=== PATIENT | male | born 1960 | race Caucasian/White ===

== ENCOUNTER 2016-07-30 08:38 | Outpatient (CLI) | payer OTHER ==
[2016-07-30] MEDS ORDERED: NS 1,000 ML IV SCH (08:45)
[2016-07-30] MEDS ORDERED: NA BICARBONATE 50 MEQ/50 ML VIAL ONE (09:31)
[2016-07-30] MEDS ORDERED: BUPIVACAINE 0.25% 30 ML SDV ONE (09:31)
[2016-07-30] MEDS ORDERED: LIDOCAINE 1% 30 ML SDV ONE (09:31)
[2016-07-30] MEDS ORDERED: NALOXONE HCL 0.4 MG/ML INJ ONE (09:34)
[2016-07-30] MEDS ORDERED: FLUMAZENIL 0.5 MG/5 ML MDV IVP ONE (09:34)
[2016-07-30] MEDS ORDERED: MIDAZOLAM 2 MG/2 ML VIAL ONE (09:35)
[2016-07-30] MEDS ORDERED: fentaNYL 100 MCG/2 ML INJ ONE (09:35)
== END 2016-07-30 14:30 | disposition home health service (06) ==
LOC: FIMAGING 08:38
PROVIDERS: ATTEND Internal Medicine Hematology & Oncology
PROC: 0FB13ZX Excision of Right Lobe Liver, Percutaneous Approach, Diagnostic (ICD-10-PCS; principal; 2016-07-30 11:20)
DX: C78.7 Secondary malignant neoplasm of liver and intrahepatic bile duct (principal); Z85.038 Personal history of other malignant neoplasm of large intestine
CPT/HCPCS: J2250; J2310; J3010

== ENCOUNTER 2017-01-21 08:42 | Outpatient (CLI) | payer OTHER ==
[2017-01-21] MEDS ORDERED: NS 1,000 ML IV SCH (09:00)
[2017-01-21] MEDS ORDERED: LIDOCAINE 1% 300 MG/30 ML SDV ONE (09:03)
[2017-01-21] MEDS ORDERED: FLUMAZENIL 0.5 MG/5 ML MDV IVP ONE (09:41)
[2017-01-21] MEDS ORDERED: MIDAZOLAM 2 MG/2 ML VIAL ONE (09:41)
[2017-01-21] MEDS ORDERED: NALOXONE HCL 0.4 MG/ML INJ ONE (09:41)
[2017-01-21] MEDS ORDERED: fentaNYL 100 MCG/2 ML INJ ONE (09:42)
[2017-01-21 14:26] VITALS: BP 119/61; RESP 17; O2SAT 96
[2017-01-21] MEDS ORDERED: oxyCODONE IR 5 MG TAB PO PRN (15:05)
[2017-01-21] MEDS ORDERED: ONDANSETRON 4 MG/2 ML VIAL IVP PRN (15:06)
== END 2017-01-21 14:09 | disposition home or self-care (01) ==
LOC: FIMAGING 08:42
PROVIDERS: ATTEND Internal Medicine Hematology & Oncology
PROC: 0FB03ZX Excision of Liver, Percutaneous Approach, Diagnostic (ICD-10-PCS; principal; 2017-01-21 11:30)
DX: C78.7 Secondary malignant neoplasm of liver and intrahepatic bile duct (principal); C18.9 Malignant neoplasm of colon, unspecified
CPT/HCPCS: J2250; J2310; J3010

== ENCOUNTER 2017-04-05 11:11 | Emergency (ER) | payer OTHER ==
[2017-04-05 11:55] LABS: PLATELET COUNT 131 10^3/uL (150-400)
--- NOTE | 2017-04-05 12:02 | EDPHY ---
H & P Stated Complaint: HX COLORECTAL CANCER WITH CONSTIPATION/ABD DISTENTION Time Seen by Provider: 04/05/17 11:35 HPI/ROS: CHIEF COMPLAINT: Constipation, abdominal pain HISTORY OF PRESENT ILLNESS: 56-year-old male history of colorectal cancer with metastases, multiple abdominal surgeries, complaining of constipation, inability to pass flatus, since yesterday well as abdominal distension which has become progressively worse with intermittent abdominal cramping. Symptoms not relieved with oral MiraLax. No fever no chills. No nausea no vomiting. No back pain. No fever or chills. No flu-like symptoms. PRIMARY CARE PROVIDER: Dr. Garcia [facility] REVIEW OF SYSTEMS: A ten point review of systems was performed and is negative with the exception of the items mentioned in the HPI PAST MEDICAL & SURGICAL HISTORY: History of colorectal cancer with metastasis SOCIAL HISTORY:nonsmoker PHYSICAL EXAM (Prior to examination, patient consented to physical exam, hands were washed and my usual and customary physical exam procedures followed) 1) GENERAL: Well-developed, well-nourished, alert and oriented. Appears to be in no acute distress. 2) HEAD: Normocephalic, atraumatic 3) HEENT: Pupils equal, round, reactive to light bilaterally. Sclera anicteric. 4) NECK: Full range of motion, no meningeal signs. 5) LUNGS: Clear auscultation bilaterally, no wheezes, no rhonchi, no retractions. 6) HEART: Regular rate and rhythm, no murmur, no heave, no gallop. 7) ABDOMEN: distended. Multiple surgical scars. No guarding, no rebound, no focal tenderness, negative McBurney's, negative Melchor's, negative Rovsing's, negative peritoneal sign, 8) MUSCULOSKELETAL: Moving all extremities, no focal areas of tenderness, no obvious trauma. No peripheral edema or discoloration. 9) BACK: No CVA tenderness, no midline vertebral tenderness, no fluctuance, no step-off, no obvious trauma, no visual or palpable abnormality. 10) SKIN: No rash, no petechiae. 11) RECTAL: Normal rectal tone, no stool in the rectal vault . DIFFERENTIAL DIAGNOSIS: in no particular include but limited to constipation, bowel obstruction, malignancy - Personal History Current Tetanus/Diphtheria Vaccine: Unsure - Medical/Surgical History Hx Asthma: No Hx Chronic Respiratory Disease: No Hx Diabetes: No Hx Cardiac Disease: No Hx Renal Disease: No Hx Cirrhosis: No Hx Alcoholism: No Hx HIV/AIDS: No Hx Splenectomy or Spleen Trauma: No Other PMH: COLORECTAL CANCER WITH METS - Social History Smoking Status: Never smoked Constitutional: Initial Vital Signs Temperature (C) 36.7 C 04/05/17 11:17 Heart Rate 100 04/05/17 11:17 Respiratory Rate 20 04/05/17 11:17 Blood Pressure 124/84 H 04/05/17 11:17 O2 Sat (%) 97 04/05/17 11:17 O2 Delivery Mode Room Air Allergies/Adverse Reactions: No Known Allergies Allergy (Verified 04/05/17 11:15) Home Medications: Medication Instructions Recorded Ritalin 10mg (*) 10 mg PO DAILY 01/17/17 Zantac PO DAILY 01/17/17 Bbi 503 04/05/17 Keytruda 04/05/17 Peg 3350/Na Sulf,Bicarb,Cl/KCl 1,000 ml PO ONCE #4000 ml 04/05/17 [Golytely (RX)] Sennosides/Docusate Sodium 04/05/17 Medical Decision Making - Diagnostics Imaging Results: Imaging Impressions Abdomen CT 04/05/17 12:18 Impression: 1. Worsening hepatic metastases. 2. New ascites. 3. 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 4. Worsening esophageal varices. 5. Constipation. 6. Cholelithiasis. Images reviewed myself ED Course/Re-evaluation: Noon : Old medical records reviewed. Discussed case with secondary supervising physician Dr. Mcduffie in the ER. 2:50 p.m. Patient was re-evaluated with serial examinations. I discussed his imaging results showing ascites, constipation. Rectal examination reveals no stool in the rectal vault. Plan will be discharge home with Shelton Blackburn's enema. He initially had outpatient ultrasound ordered for evaluation of ascites , this was visualized on CT imaging. I do not think that paracentesis currently indicated emergently. Recommend he follow up with his oncologist. He feels comfortable with this plan. All questions and concerns addressed by myself. - Data Points Laboratory Results: Laboratory Results 04/05/17 11:37 04/05/17 11:37 04/05/17 04/05/17 04/05/17 11:53 11:37 11:37 WBC RBC Hgb POC Hgb 14.3 gm/dL gm/dL (13.7-17.5) Hct POC Hct 42 % % (40-51) MCV MCH MCHC RDW Plt Count MPV Neut % (Auto) Lymph % (Auto) [place] % (Auto) Eos % (Auto) Baso % (Auto) Nucleat RBC Rel Count Absolute Neuts (auto) Absolute Lymphs (auto) Absolute Monos (auto) Absolute Eos (auto) Absolute Basos (auto) Absolute Nucleated RBC Immature Gran % Immature Gran # PT 14.1 SEC SEC (12.0-15.0) INR 1.10 (0.83-1.16) APTT 29.5 SEC SEC (23.0-38.0) POC Sodium 139 mEq/L mEq/L (134-144) Sodium 140 mEq/L mEq/L (134-144) POC Potassium 3.7 mEq/L mEq/L (3.3-5.0) Potassium 3.9 mEq/L mEq/L (3.5-5.2) POC Chloride 102 mEq/L mEq/L (97-110) Chloride 101 mEq/L mEq/L (97-110) Carbon Dioxide 23 mEq/l mEq/l (22-31) Anion Gap 16 mEq/L mEq/L (8-16) POC BUN 12 mg/dL mg/dL (7-23) BUN 12 mg/dL mg/dL (7-23) Creatinine 0.9 mg/dL mg/dL (0.7-1.3) POC Creatinine 0.9 mg/dL mg/dL (0.7-1.3) Estimated GFR > 60 Glucose 109 mg/dL H mg/dL (70-100) POC Glucose 108 mg/dL H mg/dL (70-100) Calcium 9.2 mg/dL mg/dL (8.5-10.4) Total Bilirubin 1.1 mg/dL mg/dL (0.1-1.4) Conjugated Bilirubin 0.5 mg/dL mg/dL (0.0-0.5) Unconjugated Bilirubin 0.6 mg/dL mg/dL (0.0-1.1) AST 67 IU/L H IU/L (17-59) ALT 52 IU/L IU/L (21-72) Alkaline Phosphatase 315 IU/L H IU/L (38-126) Total Protein 7.4 g/dL g/dL (6.3-8.2) Albumin 3.9 g/dL g/dL (3.5-5.0) Lipase 86 IU/L IU/L (23-300) 04/05/17 11:37 WBC 7.07 10^3/uL 10^3/uL (3.80-9.50) RBC 4.07 10^6/uL L 10^6/uL (4.40-6.38) Hgb 13.4 g/dL L g/dL (13.7-17.5) POC Hgb Hct 38.8 % L % (40.0-51.0) POC Hct MCV 95.3 fL fL (81.5-99.8) MCH 32.9 pg pg (27.9-34.1) MCHC 34.5 g/dL g/dL (32.4-36.7) RDW 12.2 % % (11.5-15.2) Plt Count 131 10^3/uL L 10^3/uL (150-400) MPV 10.7 fL fL (8.7-11.7) Neut % (Auto) 84.9 % H % (39.3-74.2) Lymph % (Auto) 8.3 % L % (15.0-45.0) [place] % (Auto) 5.9 % % (4.5-13.0) Eos % (Auto) 0.4 % L % (0.6-7.6) Baso % (Auto) 0.1 % L % (0.3-1.7) Nucleat RBC Rel Count 0.0 % % (0.0-0.2) Absolute Neuts (auto) 5.99 10^3/uL 10^3/uL (1.70-6.50) Absolute Lymphs (auto) 0.59 10^3/uL L 10^3/uL (1.00-3.00) Absolute Monos (auto) 0.42 10^3/uL 10^3/uL (0.30-0.80) Absolute Eos (auto) 0.03 10^3/uL 10^3/uL (0.03-0.40) Absolute Basos (auto) 0.01 10^3/uL L 10^3/uL (0.02-0.10) Absolute Nucleated RBC 0.00 10^3/uL 10^3/uL (0-0.01) Immature Gran % 0.4 % % (0.0-1.1) Immature Gran # 0.03 10^3/uL 10^3/uL (0.00-0.10) PT INR APTT POC Sodium Sodium POC Potassium Potassium POC Chloride Chloride Carbon Dioxide Anion Gap POC BUN BUN Creatinine POC Creatinine Estimated GFR Glucose POC Glucose Calcium Total Bilirubin Conjugated Bilirubin Unconjugated Bilirubin AST ALT Alkaline Phosphatase Total Protein Albumin Lipase Point of Care Test Results: 04/05/17 11:53 POC Sodium 139 POC Potassium 3.7 POC Chloride 102 POC BUN 12 POC Creatinine 0.9 POC Glucose 108 H Departure - Departure Disposition: Home, Routine, Self-Care Clinical Impression: Constipation Qualifiers: Constipation type: unspecified constipation type Qualified Code(s): K59.00 - Constipation, unspecified Condition: Good Instructions: Constipation (ED) Additional Instructions: Return to emergency department immediately if you develop abdominal pain, if you developed fever or chills or any other symptoms that concern you. Referrals: Xiao Sherman MD [Primary Care Provider] - As per Instructions Prescriptions: Peg 3350/Na Sulf,Bicarb,Cl/KCl [Golytely (RX)] 1,000 ml PO ONCE #4000 ml
[2017-04-05 12:06] LABS: INR 1.1 (0.83-1.16); PROTIME(PATIENT) 14.1 SEC (12.0-15.0)
[2017-04-05] MEDS ORDERED: IOPAMIDOL (ISOVUE-300) 100 ML BTL ONE (12:59)
[2017-04-05 14:04] VITALS: RESP 18; O2SAT 96
[2017-04-05 15:25] VITALS: BP 126/85; PULSE 85; TEMP 98.4
== END 2017-04-05 15:23 | disposition home or self-care (01) ==
DX: K59.00 Constipation, unspecified (principal); Z85.038 Personal history of other malignant neoplasm of large intestine
CPT/HCPCS: 82947-QW; Q9967

== ENCOUNTER → 2017-05-24 | Outpatient (CLI) | payer OTHER ==
[~2017-05-24] MED LIST: LIDOCAINE 1% 300 MG/30 ML SDV ONE
== END ==
LOC: FIMAGING 13:43
PROVIDERS: ATTEND Internal Medicine Hematology & Oncology
PROC: 0W9G3ZX Drainage of Peritoneal Cavity, Percutaneous Approach, Diagnostic (ICD-10-PCS; principal; 2017-05-24)
DX: C20 Malignant neoplasm of rectum (principal); R18.8 Other ascites

== ENCOUNTER 2017-07-05 07:46 | Inpatient (IN) | payer OTHER ==
[2017-07-05] MEDS ORDERED: OCTREOTIDE ACETATE 50 MCG/ML INJ IVP ONE (08:09)
--- NOTE | 2017-07-05 08:14 | EDPHY ---
H & P Stated Complaint: vomitting blood starting 0600 this morning Time Seen by Provider: 07/05/17 07:57 HPI/ROS: Chief Complaint: Vomiting blood HPI: 57-year-old male with a history of metastatic colorectal cancer with known extensive hepatic mets and esophageal varices. Patient woke this morning about 6 o'clock. At 6:15 a.m. he had 1 episode of emesis of zafar blood with clots. Thinks he may have vomited up maybe 12 oz of blood. Has not had any prior vomiting of blood. No dark black tarry stools or blood per rectum. No coffee grounds emesis. Patient is coming of abdominal pain but has significant ascites secondary to his liver metastasis. No fevers or chills. No cough. No chest pain or shortness of breath. Patient is under the care of Dr. Garcia at [facility]. Patient does state that he stopped taking his proton pump inhibitor about 2 weeks ago. He does not recall up this was at the suggestion of his doctor or not. ROS: 10 point Review of Systems is negative except as noted in the HPI. PMH: Colorectal cancer with liver metastasis, stenotic inferior vena cava, ascites and esophageal varices. Social History: No smoking, no alcohol, no recreational drug use Family History: non-contributory Physical Exam: Patient noted to be tachycardic and hypotensive Gen: Awake, Alert, No Distress, jaundiced and pale HEENT: Nose: no rhinorrhea Eyes: PERRLA, EOMI, scleral icterus Mouth: Moist mucosa Neck: Supple, no JVD Chest: nontender, lungs clear to auscultation Heart: S1, S2 normal, no murmur Abd: Soft, distended and ascitic, no guarding Back: no CVA tenderness, no midline tenderness Ext: no edema, non-tender Skin: no rash Neuro: CN II-XII intact, Sensation grossly intact, Strength 5/5 in bilateral upper and lower extremities - Personal History Current Tetanus/Diphtheria Vaccine: Yes Current Tetanus Diphtheria and Acellular Pertussis (TDAP): Yes Tetanus Vaccine Date: < 10 years - Medical/Surgical History Hx Asthma: No Hx Chronic Respiratory Disease: No Hx Diabetes: No Hx Cardiac Disease: No Hx Renal Disease: No Hx Cirrhosis: No Hx Alcoholism: No Hx HIV/AIDS: No Hx Splenectomy or Spleen Trauma: No Other PMH: COLORECTAL CANCER WITH METS - Social History Smoking Status: Never smoked Constitutional: Initial Vital Signs Temperature (C) 36.4 C 07/05/17 07:52 Heart Rate 119 H 07/05/17 07:52 Respiratory Rate 2 L 07/05/17 07:52 Blood Pressure 92/63 L 07/05/17 07:52 O2 Sat (%) 97 07/05/17 07:52 O2 Delivery Mode Room Air Allergies/Adverse Reactions: No Known Allergies Allergy (Verified 07/05/17 07:50) Home Medications: Medication Instructions Recorded Escitalopram Oxalate [Lexapro] 5 mg PO DAILY 07/05/17 Furosemide [Lasix 40 MG (*)] 40 mg PO DAILY 07/05/17 Omeprazole [Prilosec 20 mg] 20 mg PO DAILY 07/05/17 Prochlorperazine Maleate 10 mg PO Q6HRS PRN 07/05/17 [Compazine 10mg (*)] Regorafenib [Stivarga] 80 mg PO DAILY 07/05/17 Spironolactone [Aldactone 25 MG 50 mg PO DAILY 07/05/17 (*)] oxyCODONE HCL [Oxycontin] 10 mg PO DAILY 07/05/17 oxyCODONE HCL [Oxycontin] 20 mg PO HS 07/05/17 oxyCODONE IR [Oxycodone Ir (*)] 10 - 20 mg PO Q3-4PRN PRN 07/05/17 Medical Decision Making ED Course/Re-evaluation: 57-year-old male with known esophageal varices with hematemesis. Patient's H&H have dropped from 14.3 and 42 in April to 7.7 and 23.2 here. INR is 1.28. Platelets are 132. He has already received octreotide IV. 2 U packed red blood cells have been ordered. I have paged Gastroenterology. I spoke with Dr. Hightower, gastroenterology. He will plan on scoping the patient today. Patient be admitted to the ICU. I have started octreotide drip. I have paged the hospitalist for admission. Critical Care Time: I spent a total of 40 minutes of critical care time in obtaining history, performing a physical exam, bedside monitoring of interventions, collecting and interpreting tests and discussion with consultants but not including time spent performing procedures. - Data Points Laboratory Results: Laboratory Results 07/05/17 08:23 07/05/17 08:23 07/05/1718 07/05/17 08:23 08:23 08:23 WBC 8.62 10^3/uL 10^3/uL (3.80-9.50) RBC 2.42 10^6/uL L 10^6/uL (4.40-6.38) Hgb 7.7 g/dL L g/dL (13.7-17.5) Hct 23.2 % L % (40.0-51.0) MCV 95.9 fL fL (81.5-99.8) MCH 31.8 pg pg (27.9-34.1) MCHC 33.2 g/dL g/dL (32.4-36.7) RDW 14.7 % % (11.5-15.2) Plt Count 136 10^3/uL L 10^3/uL (150-400) MPV 10.2 fL fL (8.7-11.7) Neut % (Auto) 83.6 % H % (39.3-74.2) Lymph % (Auto) 6.0 % L % (15.0-45.0) [place] % (Auto) 9.4 % % (4.5-13.0) Eos % (Auto) 0.3 % L % (0.6-7.6) Baso % (Auto) 0.2 % L % (0.3-1.7) Nucleat RBC Rel Count 0.0 % % (0.0-0.2) Absolute Neuts (auto) 7.20 10^3/uL H 10^3/uL (1.70-6.50) Absolute Lymphs (auto) 0.52 10^3/uL L 10^3/uL (1.00-3.00) Absolute Monos (auto) 0.81 10^3/uL H 10^3/uL (0.30-0.80) Absolute Eos (auto) 0.03 10^3/uL 10^3/uL (0.03-0.40) Absolute Basos (auto) 0.02 10^3/uL 10^3/uL (0.02-0.10) Absolute Nucleated RBC 0.00 10^3/uL 10^3/uL (0-0.01) Immature Gran % 0.5 % % (0.0-1.1) Immature Gran # 0.04 10^3/uL 10^3/uL (0.00-0.10) PT 16.2 SEC H SEC (12.0-15.0) INR 1.28 H (0.83-1.16) APTT 30.3 SEC SEC (23.0-38.0) Sodium 135 mEq/L mEq/L (135-145) Potassium 4.8 mEq/L mEq/L (3.5-5.2) Chloride 99 mEq/L mEq/L (97-110) Carbon Dioxide 24 mEq/l mEq/l (22-31) Anion Gap 12 mEq/L mEq/L (8-16) BUN 35 mg/dL H mg/dL (7-23) Creatinine 0.8 mg/dL mg/dL (0.7-1.3) Estimated GFR > 60 Glucose 119 mg/dL H mg/dL (70-100) Calcium 8.1 mg/dL L mg/dL (8.5-10.4) Total Bilirubin 1.3 mg/dL mg/dL (0.1-1.4) AST 87 IU/L H IU/L (17-59) ALT 49 IU/L IU/L (21-72) Alkaline Phosphatase 282 IU/L H IU/L (38-126) Total Protein 5.1 g/dL L g/dL (6.3-8.2) Albumin 2.3 g/dL L g/dL (3.5-5.0) Patient ABO/Rh Antibody Screen Crossmatch IS Only 07/05/17 08:08 WBC RBC Hgb Hct MCV MCH MCHC RDW Plt Count MPV Neut % (Auto) Lymph % (Auto) [place] % (Auto) Eos % (Auto) Baso % (Auto) Nucleat RBC Rel Count Absolute Neuts (auto) Absolute Lymphs (auto) Absolute Monos (auto) Absolute Eos (auto) Absolute Basos (auto) Absolute Nucleated RBC Immature Gran % Immature Gran # PT INR APTT Sodium Potassium Chloride Carbon Dioxide Anion Gap BUN Creatinine Estimated GFR Glucose Calcium Total Bilirubin AST ALT Alkaline Phosphatase Total Protein Albumin Patient ABO/Rh O POSITIVE Antibody Screen NEGATIVE Crossmatch IS Only See Detail Medications Given: Octreotide Acetate 500 mcg/ (Dextrose) 51 mls @ 5 mls/hr IV CONT SILVER Stop: 07/05/17 19:41 Last Admin: 07/05/17 09:53 Dose: 51 mls Discontinued Medications Fentanyl (Sublimaze) 50 mcg IVP ONCE ONE Stop: 07/05/17 10:05 Last Admin: 07/05/17 10:08 Dose: 50 mcg Levofloxacin/Dextrose (Levaquin 500 Mg (Premix)) 100 mls @ 100 mls/hr IV ONCE ONE PRN Reason: Protocol Stop: 07/05/17 11:07 Last Admin: 07/05/17 12:22 Dose: 100 mls Morphine Sulfate (Morphine) 4 mg IVP EDNOW ONE Stop: 07/05/17 11:34 Last Admin: 07/05/17 11:36 Dose: 4 mg Octreotide Acetate (Octreotide Acetate) 50 mcg IVP ONCE ONE Stop: 07/05/17 08:10 Last Admin: 07/05/17 08:54 Dose: 50 mcg Ondansetron HCl (Zofran) 4 mg IVP ONCE ONE Stop: 07/05/17 10:04 Last Admin: 07/05/17 10:14 Dose: 4 mg Departure - Departure Disposition: [facility] Inpatient Acute Clinical Impression: Esophageal varices with bleeding Condition: Serious
[2017-07-05 08:37] LABS: PLATELET COUNT 136 10^3/uL (150-400)
[2017-07-05 08:45] LABS: INR 1.28 (0.83-1.16); PROTIME(PATIENT) 16.2 SEC (12.0-15.0)
[2017-07-05] MEDS ORDERED: OCTREOTIDE ACETATE 500 MCG in NS 50 ML IV SCH (09:15)
[2017-07-05] MEDS ORDERED: OCTREOTIDE ACETATE 500 MCG in D5W 50 ML IV SCH (09:30)
[2017-07-05] MEDS ORDERED: fentaNYL 100 MCG/2 ML INJ ONE (10:03)
[2017-07-05] MEDS ORDERED: ONDANSETRON 4 MG/2 ML VIAL IVP ONE (10:03)
[2017-07-05] MEDS ORDERED: fentaNYL 100 MCG/2 ML INJ IVP ONE (10:04)
[2017-07-05] MEDS ORDERED: ONDANSETRON 4 MG/2 ML VIAL ONE ×2 (10:05→13:09)
[2017-07-05] MEDS ORDERED: PHYTONADIONE 10 MG/ML AMP SC ONE (10:08)
[2017-07-05] MEDS ORDERED: levOFLOXACIN 500 MG/DEXTROSE 100 ML IV ONE (10:08)
[2017-07-05] MEDS ORDERED: PANTOPRAZOLE SODIUM 80 MG in NS 100 ML IV SCH (10:15)
--- NOTE | 2017-07-05 10:18 | ASMTLACE ---
LACE Length of stay for Answers: Less than 1 day current admission Acuity / Level of Answers: Yes Care: Did the patient have an inpatient admission? Comorbidities - select Answers: Any tumor (including all that apply lymphoma or leukemia) Score: 5 Date Signed: 07/05/2017 10:17 AM Electronically Signed By:Marti Martinez LCSW
--- NOTE | 2017-07-05 10:55 | GCON ---
[f rep st] CONSULTATION GI INPATIENT CONSULTATION DATE OF CONSULTATION: 07/05/2017 I was kindly requested to see the patient by Dr. Almas Benoit in consultation for chief complaint of hematemesis. HISTORY OF PRESENT ILLNESS: He is a 57-year-old white male who had an episode of hematemesis this morning, bright red with some clots. He had a further episode in the emergency department, darker in color. He denies melena. He denies aspirin, nonsteroidal use. He has known metastatic colon cancer, with extensive hepatic metastases and esophageal varices. A April 2017 CT scan showed worsening liver metastases, as well as worsening esophageal varices. His rectal cancer was first found in 2012. He underwent a left hepatectomy. He did have a small bowel obstruction after this. He then underwent portal vein embolization, which resulted in liver decompensation and ascites. He presently is on a study medication for his cancer. PAST MEDICAL HISTORY: 1. As above. 2. Otherwise, noncontributory. ALLERGIES: No known drug allergies. MEDICATIONS: Outpatient medications include: OxyContin, Stivarga, Compazine as needed, omeprazole 20 mg daily, Lexapro, Aldactone 50 mg daily, and Lasix 40 mg daily. Inpatient medications include: Transfusion of blood and octreotide drip at 50 mcg/h. SOCIAL HISTORY: He is . Mobile number [phone]. FAMILY HISTORY: Negative for similar bleeding. REVIEW OF SYSTEMS: Positive pertinent review of systems as per my HPI. Otherwise, complete review of systems is negative. PHYSICAL EXAM: CONSTITUTIONAL: A cachectic, chronically ill-appearing gentleman. VITAL SIGNS: Stable. SKIN: Warm, dry. EYES: Pupils equal, round , reactive to light and accommodation. EAR, NOSE, MOUTH, AND THROAT: Oropharynx without masses, moist mucosa. CARDIOVASCULAR: Normal S2, normal PMI. RESPIRATORY: Lungs clear to auscultation and percussion anteriorly. GASTROINTESTINAL: Moderate ascites. No masses felt. NEUROLOGIC: Grossly nonfocal, cranial nerves grossly intact. PSYCHIATRIC: Orientation, insight appropriate. MUSCULOSKELETAL: Strength grossly normal throughout, normal station. LABORATORIES: Include hematocrit 23.2%. Platelet count 136,000. Prothrombin time 16.2. Alkaline phosphatase 282. AST 87. Normal basic metabolic panel. His April 2017 CT otherwise showed severe stenosis of the hepatic portion of the IVC. Gallstones. ASSESSMENT: Hematemesis, with drop in his hematocrit. Overall, suspect an esophageal varicele bleed. Other possibilities, such as peptic ulcer disease, tumor invasion into the stomach, etc. is possible, but less likely. PLAN: 1. Agree with transfusion of blood, octreotide drip. 2. Serial hematocrits, transfusion of more prbc prn. 3. Protonix drip. 4. Vitamin K x1. 5. Urgent upper endoscopy, with general anesthesia (he is on OxyContin, oxycodone, etc.) Certainly, with his narcotic use, metastatic colon cancer, known varices, stenotic hepatic IVC, ascites, etc., he is at increased risk for this procedure. However, suspected benefits outweigh the risks, and suspect he will do well. 6. With his ascites, will give him a prophylactic dose of Levaquin, because of his bleeding, need for upper endoscopy and probable varicele banding. 7. Would avoid or keep maintenance fluid to a minimum, to avoid worsening ascites. Once stable, would recommend restarting his Aldactone and Lasix. Thank you for allowing me to help in the management of this patient. Copy requested to: Dr. Richardson Rivera /[id number]/MODL MTDD
[2017-07-05] MEDS ORDERED: PANTOPRAZOLE SODIUM 40 MG VIAL IVP SCH (12:00)
--- NOTE | 2017-07-05 12:13 | PDANEPAE ---
ANE History of Present Illness hematemesis, esophageal varices ANE Past Medical History - Cardiovascular History Hx Hypertension: No Hx Arrhythmias: No Hx Chest Pain: No Hx Coronary Artery / Peripheral Vascular Disease: No Hx CHF / Valvular Disease: No Hx Palpitations: No - Pulmonary History Hx COPD: No Hx Asthma/Reactive Airway Disease: No Hx Recent Upper Respiratory Infection: No Hx Oxygen in Use at Home: No Hx Sleep Apnea: No - Neurologic History Hx Cerebrovascular Accident: No Hx Seizures: No Hx Dementia: No - Endocrine History Hx Diabetes: No Hypothyroid: No Hyperthyroid: No - Renal History Hx Renal Disorders: No - Liver History Hx Hepatic Disorders: Yes Hepatic History Comment: colon cancer with liver mets. esophageal varices - Neurological & Psychiatric Hx Hx Neurological and Psychiatric Disorders: Yes Neurological / Psychiatric History Comment: past situational depression. - Cancer History Hx Cancer: Yes Cancer History Comment: colon cancer with liver mets - Congenital Disorder History Hx Congenital Disorders: No - GI History Hx Gastrointestinal Disorders: Yes Gastrointestinal History Comment: esophageal varices, ascites, pt. was due for a paracentesis this week - Other Health History Other Health History: none - Chronic Pain History Chronic Pain: Yes (on opioids) - Surgical History Prior Surgeries: liver resection/shunt 01/2014 ANE Review of Systems Review of Systems: - Exercise capacity METS (RN): 2 METS ANE Patient History - Allergies Allergies/Adverse Reactions: No Known Allergies Allergy (Verified 07/05/17 07:50) - Home Medications Home Medications: Escitalopram Oxalate [Lexapro] 5 mg PO DAILY 07/05/17 [Last Taken 07/04/17] Furosemide [Lasix 40 MG (*)] 40 mg PO DAILY 07/05/17 [Last Taken 07/04/17] Omeprazole [Prilosec 20 mg] 20 mg PO DAILY 07/05/17 [Last Taken Unknown] Prochlorperazine Maleate [Compazine 10mg (*)] 10 mg PO Q6HRS PRN 07/05/17 [Last Taken 07/04/17 14:00] Regorafenib [Stivarga] 80 mg PO DAILY 07/05/17 [Last Taken 07/04/17] Spironolactone [Aldactone 25 MG (*)] 50 mg PO DAILY 07/05/17 [Last Taken ] oxyCODONE HCL [Oxycontin] 10 mg PO DAILY 07/05/17 [Last Taken 07/04/17] oxyCODONE HCL [Oxycontin] 20 mg PO HS 07/05/17 [Last Taken 07/04/17] oxyCODONE IR [Oxycodone Ir (*)] 10 - 20 mg PO Q3-4PRN PRN 07/05/17 [Last Taken 07/05/17 03:00 10mg] - Smoking Hx Smoking Status: Never smoked - Family Anes Hx Family Hx Anesthesia Complications: None ANE Labs/Vital Signs - Labs Result Diagrams: 07/05/17 08:23 07/05/17 08:23 - Vital Signs Blood Pressure: 103/67 Heart Rate: 96 Respiratory Rate: 16 O2 Sat (%): 96 Height: 177.8 cm Weight: 77.111 kg ANE Physical Exam - Airway Neck exam: decreased ROM (decreased R lateral CS rotation) Mallampati Score: Class 1 Mouth exam: poor dentition (upper front cap) - Pulmonary Pulmonary: clear to auscultation - Cardiovascular Cardiovascular: regular rate and rhythym - ASA Status ASA Status: III ANE Anesthesia Plan Anesthesia Plan: general endotracheal anesthesia
[2017-07-05] MEDS ORDERED: REMIFENTANIL HCL 1 MG VIAL ONE (12:28)
[2017-07-05] MEDS ORDERED: PROPOFOL/EMULSION 500 MG/50 ML BOTTLE IV ONE (12:28)
[2017-07-05] MEDS ORDERED: DEXAMETHASONE 4 MG/ML VIAL ONE (12:29)
[2017-07-05] MEDS ORDERED: SUCCINYLCHOLINE CHLORIDE 200 MG/10 ML SYR IVP ONE (12:29)
[2017-07-05] MEDS ORDERED: ROCURONIUM 50 MG/5 ML VIAL ONE (12:29)
[2017-07-05] MEDS ORDERED: PHYTONADIONE 10 MG in NS (SYRINGE) 50 ML IV ONE (12:30)
[2017-07-05] MEDS ORDERED: PHYTONADIONE IV ONE (12:30)
[2017-07-05] MEDS ORDERED: NS IV ONE (12:30)
[2017-07-05] MEDS ORDERED: PHENYLEPHRINE 10 MG/ML SDV ONE (12:33)
[2017-07-05] MEDS ORDERED: NALOXONE HCL 0.4 MG/ML INJ IVP PRN (13:23)
--- NOTE | 2017-07-05 13:27 | GIREPORT ---
[facility] Surgical Services - Endoscopy Department Patient Name: Jerardo Harrison Procedure Date: 07/05/2017 12:38 PM Patient Type: Inpatient Attending MD/ ER Physician: Brandyn Hightower MD Procedure: Upper GI endoscopy Indications: Note dictated, consult appreciated. Hematemesis. Providers: Brandyn Hightower MD Referring MD: Jacky Rivera MD; Patrice Sanabria MD; Gabe Sherman MD; [facility] Hospitalist service Medicines: Monitored Anesthesia Care Complications: No immediate complications. Description of Procedure: After obtaining informed consent, the endoscope was passed under direct vision. Throughout the procedure, the patient's blood pressure, pulse, and oxygen saturations were monitored continuously. The Endoscope was intro duced through the mouth, and advanced to the second part of duodenum. Findings: Grade III varices were found in the lower third of the esophagus, three columns in total, one large in size, with a red "yoly" sign just above the GE junction. GE junction at 43 cm. No active bleeding at present. Five bands were successfully placed, three at 42 cm on each varix, and two on the larger varix at 40 and 38 cm. The stomach was normal, except for mild portal hypertensive gastropathy . The examined duodenum was normal. Estimated Blood Loss: Estimated blood loss: none. Post Op Diagnosis: - Esophageal varices, as above; suspect this was the cause of his hematemesis. No active bleeding now. Recommendation: - clears - buffcap IV, when not in use - change PPI to oral daily - serial H/H, trf prbc prn - restart O/P lasix, aldactone - continue octreotide drip for now Thank you for allowing me to help in the management of this patient. Katja Ahumada MD Brandyn Hightower MD 07/05/2017 1:27:22 PM This report has been signed electronicallyPeter MD Katja Number of Addenda: 0 Note Initiated On: 07/05/2017 12:38 PM [email or web address]
[2017-07-05] MEDS ORDERED: HYDROmorphONE/DILAUDID 1 MG/ML INJ ONE (13:41)
[2017-07-05] MEDS: HYDROmorphONE/DILAUDID 1 MG/ML INJ IVP PRN ×2 (13:42→13:54)
--- NOTE | 2017-07-05 14:08 | POSTANESTH ---
Post Anesthetic Evaluation Cardiovascular Status: Similar to Pre-Op Cond Respiratory Status: Similar to Pre-op Cond. Level of Consciousness/Mental Status: Can Participate in Eval Pain Control: Adequate, Prn Tx Ordered Nausea/Vomiting Control: Adequate, Prn Tx Ordered Complications Possibly Related to Anesthesia: None Noted
[2017-07-05] MEDS: FUROSEMIDE 40 MG TAB PO SCH (14:21)
[2017-07-05] MEDS: SPIRONOLACTONE 50 MG TAB PO SCH (14:21)
[2017-07-05] MEDS: PANTOPRAZOLE SODIUM 40 MG TAB PO SCH (14:21)
--- NOTE | 2017-07-05 14:24 | ASMTCMCOM ---
CM Note CM Note Notes: Patient admitted for hematemesis. He has a history of metastatic colon cancer with mets to the liver. He also has known esophogeal varices, which were likely the cause of his hematemesis. He had an upper GI endoscopy today. Patient lives indepedently with his . I don't anticipate any discharge needs, but if any arise, Case Management can assit. Date Signed: 07/05/2017 02:23 PM Electronically Signed By:Lyudmila Caban RN
[2017-07-05] MEDS ORDERED: PROCHLORPERAZINE MALEATE 10 MG TAB PO PRN (14:45)
[2017-07-05] MEDS ORDERED: oxyCODONE IR 5 MG TAB PO PRN (14:45)
[2017-07-05] MEDS ORDERED: ONDANSETRON DISINTEGRATING 4 MG TAB PO PRN (14:47)
[2017-07-05] MEDS ORDERED: ACETAMINOPHEN 325 MG TAB PO PRN (14:47)
[2017-07-05] MEDS ORDERED: ONDANSETRON 4 MG/2 ML VIAL IVP PRN (14:47)
--- NOTE | 2017-07-05 16:20 | PDGENHP ---
History and Physical - Chief Complaint hematemasis - History of Present Illness 57-year-old male with a history of metastatic colorectal cancer with known extensive hepatic mets and esophageal varices. Patient woke this morning and had 1 episode of emesis of zafar blood with clots. No dark black tarry stools or blood per rectum. No coffee grounds emesis. No fevers or chills. No cough. No chest pain or shortness of breath. No abd pain. + abd distention Patient is under the care of Dr. Garcia at [facility]. In the E.D. he was started on octreotide, given vitamin K, and PRBC transfusion was given An endoscopy was performed which showed Grade 3 Esophageal Varices, no active bleeding, five bands successfully placed He is seen after the endoscopy PMH: Colorectal cancer with liver metastasis, stenotic inferior vena cava, ascites and esophageal varices. Social History: No smoking, no alcohol, no recreational drug use Family History: non-contributory History Information - Allergies/Home Medication List Allergies/Adverse Reactions: No Known Allergies Allergy (Verified 07/05/17 07:50) Home Medications: Escitalopram Oxalate [Lexapro] 5 mg PO DAILY 07/05/17 [Last Taken 07/04/17] Furosemide [Lasix 40 MG (*)] 40 mg PO DAILY 07/05/17 [Last Taken 07/04/17] Omeprazole [Prilosec 20 mg] 20 mg PO DAILY 07/05/17 [Last Taken Unknown] Prochlorperazine Maleate [Compazine 10mg (*)] 10 mg PO Q6HRS PRN 07/05/17 [Last Taken 07/04/17 14:00] Regorafenib [Stivarga] 80 mg PO DAILY 07/05/17 [Last Taken 07/04/17] Spironolactone [Aldactone 25 MG (*)] 50 mg PO DAILY 07/05/17 [Last Taken ] oxyCODONE HCL [Oxycontin] 10 mg PO DAILY 07/05/17 [Last Taken 07/04/17] oxyCODONE HCL [Oxycontin] 20 mg PO HS 07/05/17 [Last Taken 07/04/17] oxyCODONE IR [Oxycodone Ir (*)] 10 - 20 mg PO Q3-4PRN PRN 07/05/17 [Last Taken 07/05/17 03:00 10mg] I have personally reviewed and updated: medical history, social history - Social History Smoking Status: Never smoked Review of Systems Review of Systems: ROS: 10pt was reviewed & negative except for what was stated in HPI & below Physical Exam Physical Exam: Temp Pulse Resp BP Pulse Ox 36.7 C 82 21 H 114/78 96 07/05/17 13:32 07/05/17 13:32 07/05/17 14:01 07/05/17 14:01 07/05/17 14:01 Constitutional: no apparent distress Eyes: PERRL, EOMI Ears, Nose, Mouth, Throat: moist mucous membranes, hearing normal Cardiovascular: regular rate and rhythym, No edema Respiratory: no respiratory distress Gastrointestinal: normoactive bowel sounds, distension, No guarding, No rebound Genitourinary: no bladder fullness Skin: warm Neurologic: AAOx3 Psychiatric: interacting appropriately, not anxious, not encephalopathic Lab Data & Imaging Review 07/05/17 14:31 07/05/17 08:23 WBC 8.62 10^3/uL (3.80-9.50) 07/05/17 08:23 RBC 2.42 10^6/uL (4.40-6.38) L 07/05/17 08:23 Hgb 8.9 g/dL (13.7-17.5) L 07/05/17 14:31 Hct 26.3 % (40.0-51.0) L 07/05/17 14:31 MCV 95.9 fL (81.5-99.8) 07/05/17 08:23 MCH 31.8 pg (27.9-34.1) 07/05/17 08:23 MCHC 33.2 g/dL (32.4-36.7) 07/05/17 08:23 RDW 14.7 % (11.5-15.2) 07/05/17 08:23 Plt Count 136 10^3/uL (150-400) L 07/05/17 08:23 MPV 10.2 fL (8.7-11.7) 07/05/17 08:23 Neut % (Auto) 83.6 % (39.3-74.2) H 07/05/17 08:23 Lymph % (Auto) 6.0 % (15.0-45.0) L 07/05/17 08:23 [place] % (Auto) 9.4 % (4.5-13.0) 07/05/17 08:23 Eos % (Auto) 0.3 % (0.6-7.6) L 07/05/17 08:23 Baso % (Auto) 0.2 % (0.3-1.7) L 07/05/17 08:23 Nucleat RBC Rel Count 0.0 % (0.0-0.2) 07/05/17 08:23 Absolute Neuts (auto) 7.20 10^3/uL (1.70-6.50) H 07/05/17 08:23 Absolute Lymphs (auto) 0.52 10^3/uL (1.00-3.00) L 07/05/17 08:23 Absolute Monos (auto) 0.81 10^3/uL (0.30-0.80) H 07/05/17 08:23 Absolute Eos (auto) 0.03 10^3/uL (0.03-0.40) 07/05/17 08:23 Absolute Basos (auto) 0.02 10^3/uL (0.02-0.10) 07/05/17 08:23 Absolute Nucleated RBC 0.00 10^3/uL (0-0.01) 07/05/17 08:23 Immature Gran % 0.5 % (0.0-1.1) 07/05/17 08: Immature Gran # 0.04 10^3/uL (0.00-0.10) 07/05/17 08:23 PT 16.2 SEC (12.0-15.0) H 07/05/17 08:23 INR 1.28 (0.83-1.16) H 07/05/17 08:23 APTT 30.3 SEC (23.0-38.0) 07/05/17 08:23 Sodium 135 mEq/L (135-145) 07/05/17 08:23 Potassium 4.8 mEq/L (3.5-5.2) 07/05/17 08:23 Chloride 99 mEq/L (97-110) 07/05/17 08:23 Carbon Dioxide 24 mEq/l (22-31) 07/05/17 08:23 Anion Gap 12 mEq/L (8-16) 07/05/17 08:23 BUN 35 mg/dL (7-23) H 07/05/17 08:23 Creatinine 0.8 mg/dL (0.7-1.3) 07/05/17 08:23 Estimated GFR > 60 07/05/17 08:23 Glucose 119 mg/dL (70-100) H 07/05/17 08:23 Calcium 8.1 mg/dL (8.5-10.4) L 07/05/17 08:23 Total Bilirubin 1.3 mg/dL (0.1-1.4) 07/05/17 08:23 AST 87 IU/L (17-59) H 07/05/17 08:23 ALT 49 IU/L (21-72) 07/05/17 08:23 Alkaline Phosphatase 282 IU/L (38-126) H 07/05/17 08:23 Total Protein 5.1 g/dL (6.3-8.2) L 07/05/17 08:23 Albumin 2.3 g/dL (3.5-5.0) L 07/05/17 08:23 Patient ABO/Rh O POSITIVE 07/05/17 08:08 Antibody Screen NEGATIVE 07/05/17 08:08 Crossmatch IS Only See Detail 07/05/17 08:08 Assessment & Plan Assessment: #Esophageal varices with bleeding #Acute blood loss anemia #Hematemesis #Ascites #chronic pain syndrome Plan: -cont PPI oral -cont Octreotide -CLD -Monitor h/h, VS for recurrence -cont Lasix and Aldactone -SCD's for DVT proph -Full code, confirmed at bedside
[2017-07-06 04:21] LABS: PLATELET COUNT 160 10^3/uL (150-400)
[2017-07-06] MEDS ORDERED: REGORAFENIB PO SCH ×2 (09:00)
[2017-07-06] MEDS: CIPROFLOXACIN 250 MG TAB PO SCH ×2 (09:06→20:35)
[2017-07-06] MEDS: FUROSEMIDE 40 MG TAB PO SCH ×2 (09:06→16:20)
[2017-07-06] MEDS: SPIRONOLACTONE 50 MG TAB PO SCH (09:07)
[2017-07-06] MEDS: PANTOPRAZOLE SODIUM 40 MG TAB PO SCH (09:07)
--- NOTE | 2017-07-06 13:44 | HOSPPROG ---
Hospitalist Progress Note Assessment/Plan: #Esophageal varices with bleeding #Acute blood loss anemia #Hematemesis #Ascites, cirrhosis, portal HTN #chronic pain syndrome Plan: -Overall stable -cont PPI oral -cont Octreotide, restarted drip -advance diet -cont abx prophy -GI to see. Non selective BB per GI -Monitor h/h, VS for recurrence -cont Lasix and Aldactone -He will need a therapeutic Paracentesis on the day of discharge -SCD's for DVT proph -Full code, confirmed at bedside -OK to transfer out of the ICU D/W GI, appreciate their help Subjective: no further bleeding. No CP or SOB. No N/V. VSS Objective: Vital Signs Temp Pulse Resp BP Pulse Ox 36.7 C 85 20 118/72 99 07/06/17 07:34 07/06/17 07:34 07/06/17 07:34 07/06/17 07:34 07/06/17 07:34 Laboratory Results 07/06/17 12:15 07/06/17 04:05 07/05/17 07/06/17 07/07/17 05:59 05:59 05:59 Intake Total 2030 Output Total 1000 Balance 1030 PT 16.2 SEC (12.0-15.0) H 07/05/17 08:23 INR 1.28 (0.83-1.16) H 07/05/17 08:23 - Physical Exam Constitutional: no apparent distress Eyes: PERRL, EOMI Ears, Nose, Mouth, Throat: moist mucous membranes Cardiovascular: regular rate and rhythym Respiratory: no respiratory distress Gastrointestinal: distension Skin: warm Neurologic: AAOx3 Psychiatric: interacting appropriately, not anxious, not encephalopathic, thought process linear Lymph, Heme, Immunologic: No petechiae ICD10 Worksheet Patient Problems: Problems Problem Status Onset Esophageal varices with bleeding Acute
--- NOTE | 2017-07-06 14:23 | SOAPPROG ---
SOAP Progress Note Assessment/Plan: Assessment:Plan: 1) Esoph variceal bleed - Octreotide for approx 72 hours, start non-selective beta nathan = nadolol 10mg watch for change in BP - want decrease in HR about 25% so 86 to approx 60, repeat egd in 4-5 weeks for rebanding 2) ID - 3 days oral abx for UGI bleed in pt with portal HTN 3) Diet - start with liquids advance as tolerated to 2 gram sodium diet 4) Ascites - previous taps do not show malignant cells, needs low sodium diet and maybe increase in diuretics, daily weights, and if not helping then taps. He does want a therapeutic tap today secondary to discomfort/distension 5) Diuretics - increase to Aldactone 100mg and Lasix 80mg daily 6) dispo - can go to floor today will follow with you 07/06/17 14:31 Subjective: CC- variceal bleed, metastatic colon cancer pt wants to eat, no n/v melena decreasing no f/c/s no CP Objective: Vital Signs Temp Pulse Resp BP Pulse Ox 36.7 C 85 20 118/72 99 07/06/17 07:34 07/06/17 07:34 07/06/17 07:34 07/06/17 07:34 07/06/17 07:34 PT 16.2 SEC (12.0-15.0) H 07/05/17 08:23 INR 1.28 (0.83-1.16) H 07/05/17 08:23 A+Ox3 CTA S1S2 +BS, soft tender RUQ and diffusely from ascites distension no r/g Laboratory Tests 07/05/17 07/05/17 07/05/17 08:23 08:23 14:31 Hgb 7.7 L 8.9 L Hct 23.2 L 26.3 L BUN 35 H Creatinine 0.8 07/05/17 07/05/17 07/06/17 18:35 21:55 04:05 Hgb 9.8 L 9.4 L 9.8 L Hct 28.2 L 27.6 L 28.4 L BUN Creatinine 07/06/17 07/06/17 04:05 12:15 Hgb 9.4 L Hct 27.0 L BUN 36 H Creatinine 0.8 ICD10 Worksheet Patient Problems: Problems Problem Status Onset Esophageal varices with bleeding Acute
--- NOTE | 2017-07-06 14:23 | PDMN ---
Medical Necessity Medical necessity: C/M review: Patient meets INPT criteria under MCG M-180 Gastrointestinal bleed, upper: Acute upper GI bleed, Hgb 7.7, Hct 23.2 initially on 07/05/2017, acute blood loss anemia, hematemesis, moderate ascites on 07/06/2017 US, requiring urgent EGD which showed esophageal varices requiring placement of five bands, IV Octreotide infusion 07/05/2017 in SDU, 07/06/2017 planned transfer from SDU to med/surg, planned future therapeutic paracentesis on day of discharge, restart ongoing IV Octreotide infusion, Hgb/Hct serial monitoring, oral PPI, comorbid cirrhosis,portal hypertension, chronic pain syndrome, history of colorectal cancer with liver metastasis, stenotic inferior vena cava, ascites, esophageal varices. MD anticipates > 2 MN LOS for ongoing med nec for eval and TX of above.
[2017-07-06] MEDS ORDERED: NADOLOL 20 MG TAB PO SCH (14:45)
[2017-07-06] MEDS ORDERED: SPIRONOLACTONE 50 MG TAB PO ONE (14:45)
[2017-07-07 06:08] LABS: PLATELET COUNT 118 10^3/uL (150-400)
[2017-07-07] MEDS ORDERED: SPIRONOLACTONE 100 MG TAB PO SCH (09:00)
[2017-07-07] MEDS ORDERED: ONDANSETRON 4 MG/2 ML VIAL IVP PRN (09:44)
[2017-07-07] MEDS: PANTOPRAZOLE SODIUM 40 MG TAB PO SCH (09:48)
[2017-07-07] MEDS: CIPROFLOXACIN 250 MG TAB PO SCH ×2 (10:43→21:54)
[2017-07-07] MEDS: SPIRONOLACTONE 50 MG TAB PO SCH (10:43)
[2017-07-07] MEDS: FUROSEMIDE 40 MG TAB PO SCH ×2 (10:43→13:55)
[2017-07-07] MEDS: OCTREOTIDE ACETATE 500 MCG in NS 50 ML IV SCH ×2 (10:44→21:10)
--- NOTE | 2017-07-07 11:09 | HOSPPROG ---
Hospitalist Progress Note Assessment/Plan: 57 yo male with metastatic colorectal cancer with mets to liver and advance liver disease admitted for ABLA due to esophageal variceal bleed. #Esophageal varices with bleeding #Acute blood loss anemia #Hematemesis #Ascites, cirrhosis, portal HTN #chronic pain syndrome #Nause, start Zofran Plan: -Overall stable -cont PPI oral -cont Octreotide, ordered drip 2/3 but it was not given. Unclear why. D/w nursing team and this is being restarted today. Per GI, he needs Octreotide for 72hrs past procedure -2g Na diet -cont abx prophy x total 3 days -GI following -Nadalol to start today -Monitor h/h, VS for recurrence -cont Lasix and Aldactone. These were increased yesterday -He will need a therapeutic Paracentesis on the day of discharge -SCD's for DVT proph -Full code, confirmed at bedside -Med Surge Subjective: Has some nausea. No vomiting. No further bleeding. Hgb 8.7 Objective: Vital Signs Temp Pulse Resp BP Pulse Ox 36.9 C 95 16 112/65 96 07/07/17 04:00 07/07/17 08:00 07/07/17 08:00 07/07/17 08:00 07/07/17 08:00 Laboratory Results 07/07/17 06:00 07/07/17 06:00 07/06/17 07/07/17 07/08/17 05:59 05:59 05:59 Intake Total 1500 Output Total 1000 Balance 500 PT 16.2 SEC (12.0-15.0) H 07/05/17 08:23 INR 1.28 (0.83-1.16) H 07/05/17 08:23 - Physical Exam Constitutional: chronically ill appearing Eyes: PERRL, EOMI Ears, Nose, Mouth, Throat: moist mucous membranes, hearing normal Cardiovascular: regular rate and rhythym, No edema Respiratory: no respiratory distress, no rales or rhonchi, clear to auscultation Gastrointestinal: ascites, distension Genitourinary: no bladder fullness Skin: warm Musculoskeletal: full muscle strength Neurologic: AAOx3 Psychiatric: interacting appropriately, not anxious, not encephalopathic, thought process linear ICD10 Worksheet Patient Problems: Problems Problem Status Onset Esophageal varices with bleeding Acute
--- NOTE | 2017-07-07 11:47 | SOAPPROG ---
SOAP Progress Note Assessment/Plan: Assessment:Plan: 1) Esoph variceal bleed - Octreotide for approx 72 hours, start non-selective beta nathan = nadolol 10mg watch for change in BP - want decrease in HR about 25% so 86 to approx 60, repeat egd in 4-5 weeks for rebanding 2) ID - 3 days oral abx for UGI bleed in pt with portal HTN 3) Diet - start with liquids advance as tolerated to 2 gram sodium diet 4) Ascites - previous taps do not show malignant cells, needs low sodium diet and maybe increase in diuretics, daily weights, and if not helping then taps. He does want a therapeutic tap today secondary to discomfort/distension 5) Diuretics - increase to Aldactone 100mg and Lasix 80mg daily 6) dispo - can go to floor today will follow with you 07/06/17 14:31 07/07/17 11:41 1) esoph variceal bleed - back on octreotide, not clear why it was stopped, mild decrease in Hb but stable BUN/Cr ration and no melena today, octreotide until tomorrow - 72 hours since started, I did start nadolol 10mg, titrate to HR approx 60 and stable BP, EGDin 4-5 weeks 2) ID - 3 days oral abx 3) Diet - 2 gram sodium, only salt substitute is MRs Serna, daily weights 4) Ascites - increased diuretics Lasix 40 bid, Aldactone 100 daily, daily weights, follow SMA7 - within one week as outpt. If needs tap then want 25 grams salt poor albumin for every 4 liters (ie 25 grams for 1-4 liters removed, 50 grams for 4-8 liter removed), diet as above, daily weights - if losing more then 2 pound per day, need to decrease diuretics - ideal is about 0.5 to 1 pound per day -- 1 pound = 1 liter of fluid) 5) dispo - prob home tomorrow Objective: Vital Signs Temp Pulse Resp BP Pulse Ox 36.9 C 95 16 112/65 96 07/07/17 04:00 07/07/17 08:00 07/07/17 08:00 07/07/17 08:00 07/07/17 08:00 Laboratory Results 07/07/17 06:00 07/07/17 06:00 07/06/17 07/07/17 07/08/17 05:59 05:59 05:59 Intake Total 1500 Output Total 1000 Balance 500 PT 16.2 SEC (12.0-15.0) H 07/05/17 08:23 INR 1.28 (0.83-1.16) H 07/05/17 08:23 A+Ox3 CTA S1S2, RRR +BS, soft distended but appear less so today, diffusely tender no r/g Selected Entries 07/05/17 07/06/17 13:25 05:35 Weight 77.111 kg 76.9 kg ICD10 Worksheet Patient Problems: Problems Problem Status Onset Esophageal varices with bleeding Acute
[2017-07-07] MEDS: NADOLOL 20 MG TAB PO SCH (14:54)
[2017-07-08 05:23] LABS: PLATELET COUNT 117 10^3/uL (150-400)
[2017-07-08] MEDS: SPIRONOLACTONE 50 MG TAB PO SCH (08:11)
[2017-07-08] MEDS: FUROSEMIDE 40 MG TAB PO SCH ×2 (08:12→15:29)
[2017-07-08] MEDS: PANTOPRAZOLE SODIUM 40 MG TAB PO SCH (08:12)
[2017-07-08] MEDS: CIPROFLOXACIN 250 MG TAB PO SCH (09:32)
[2017-07-08] MEDS: OCTREOTIDE ACETATE 500 MCG in NS 50 ML IV SCH (09:32)
[2017-07-08] MEDS: NADOLOL 20 MG TAB PO SCH ×2 (12:17→16:29)
--- NOTE | 2017-07-08 12:34 | SOAPPROG ---
CR[facility] Progress Note Assessment/Plan: Assessment:Plan: 07/07/17 11:41 1) esoph variceal bleed - back on octreotide, not clear why it was stopped, mild decrease in Hb but stable BUN/Cr ration and no melena today, octreotide until tomorrow - 72 hours since started, I did start nadolol 10mg, titrate to HR approx 60 and stable BP, EGDin 4-5 weeks 2) ID - 3 days oral abx 3) Diet - 2 gram sodium, only salt substitute is MRs Serna, daily weights 4) Ascites - increased diuretics Lasix 40 bid, Aldactone 100 daily, daily weights, follow SMA7 - within one week as outpt. If needs tap then want 25 grams salt poor albumin for every 4 liters (ie 25 grams for 1-4 liters removed, 50 grams for 4-8 liter removed), diet as above, daily weights - if losing more then 2 pound per day, need to decrease diuretics - ideal is about 0.5 to 1 pound per day -- 1 pound = 1 liter of fluid) 5) dispo - prob home tomorrow 07/08/17 12:31 as above 1) variceal bleed - on octreotide, Hb dropped again but no melena, no overt bleed. will check SMA7 to see if BUN jumped up - if stable or lower then I think this is not c/w rebleeding and we can stop octreotide with possible d/c later today or tomorrow 2) ID - finished 3 days abx 3) diet - 2 gram sodium 4) Ascites - his weight went up but he had some lower ext edema - he thinks he abdo is less distended with increase in diuretics. try to avoid taps is able, but if needs would use SPA as note above Subjective: cc- variceal bleed pt feeling OK, standing up in room says no more melena feels less distended Objective: Vital Signs Temp Pulse Resp BP Pulse Ox 37.1 C 75 16 96/59 L 94 07/08/17 07:18 07/08/17 12:17 07/08/17 07:18 07/08/17 12:17 07/08/17 07:18 Laboratory Results 07/08/17 04:44 07/07/17 06:00 07/07/17 07/08/17 07/09/17 05:59 05:59 05:59 Intake Total 1500 1529.3 Output Total 1000 Balance 500 1529.3 PT 16.2 SEC (12.0-15.0) H 07/05/17 08:23 INR 1.28 (0.83-1.16) H 07/05/17 08:23 A+Ox3 CTA S1S2 +BS, soft distended (he says from breakfast) +lower ext edema Laboratory Tests 07/05/17 07/06/17 07/06/17 08:23 04:05 04:05 Hgb 9.8 L Hct 28.4 L BUN 35 H 36 H Creatinine 0.8 0.8 07/06/17 07/06/17 07/07/17 12:15 16:28 06:00 Hgb 9.4 L 9.4 L 8.7 L Hct 27.0 L 27.3 L 26.0 L BUN Creatinine 07/07/17 07/08/17 06:00 04:44 Hgb 8.4 L Hct 25.5 L BUN 36 H Creatinine 0.9 ICD10 Worksheet Patient Problems: Problems Problem Status Onset Esophageal varices with bleeding Acute
--- NOTE | 2017-07-08 14:53 | ASMTCMCOM ---
CM Note CM Note Notes: Reviewed chart and discussed w/RN. Pt will most likely dc home independantly with . CM will follow. Date Signed: 07/08/2017 02:53 PM Electronically Signed By:Hayley Mendes RN
--- NOTE | 2017-07-08 16:29 | HOSPPROG ---
Hospitalist Progress Note Assessment/Plan: #Esophageal varices with bleeding- H&H stable overnight 01/25 - BUN declining on BMP - no clinical bleeding - complete octreotide gtt - pt taking regular diet without complication #Acute blood loss anemia- no additional clinical losses overnight - as above H& H stable 01/25 oxygen saturations 96% on RA #Ascites, cirrhosis, portal HTN- tolerating diuretics currently abdominal US (reviewed personally) moderate ascites - no paracentesis prior to dc per Dr. Li - cont low dose nadolol #chronic pain syndrome- cont current meds #Nausea- cont Zofran # dispo- > 2MN as requires ongoing monitoring for blood loss I have discussed the case with we will dc in am tomorrow if remains stable Subjective: denies pain or bleeding Objective: Vital Signs Temp Pulse Resp BP Pulse Ox 37.2 C 71 12 94/60 L 96 07/08/17 16:00 07/08/17 16:00 07/08/17 16:00 07/08/17 16:00 07/08/17 16:00 Laboratory Results 07/08/17 04:44 07/08/17 14:00 07/07/17 07/08/17 07/09/17 05:59 05:59 05:59 Intake Total 1500 1529.3 500 Output Total 1000 Balance 500 1529.3 500 PT 16.2 SEC (12.0-15.0) H 07/05/17 08:23 INR 1.28 (0.83-1.16) H 07/05/17 08:23 - Physical Exam Constitutional: chronically ill appearing Eyes: anicteric sclera, icteric sclera Ears, Nose, Mouth, Throat: moist mucous membranes Cardiovascular: regular rate and rhythym Respiratory: no respiratory distress Gastrointestinal: normoactive bowel sounds, distension, No tenderness Genitourinary: no bladder fullness Skin: warm Musculoskeletal: No asymmetric calves Neurologic: AAOx3 Psychiatric: interacting appropriately Lymph, Heme, Immunologic: no cervical LAD ICD10 Worksheet Patient Problems: Problems Problem Status Onset Esophageal varices with bleeding Acute
[2017-07-09 05:17] VITALS: O2SAT 94
[2017-07-09] MEDS: PANTOPRAZOLE SODIUM 40 MG TAB PO SCH (08:29)
[2017-07-09 08:35] VITALS: BP 106/64; PULSE 71; RESP 15; TEMP 98.2
[2017-07-09] MEDS: SPIRONOLACTONE 50 MG TAB PO SCH (08:36)
[2017-07-09] MEDS: FUROSEMIDE 40 MG TAB PO SCH (08:36)
[2017-07-09] MEDS: NADOLOL 20 MG TAB PO SCH (08:37)
--- NOTE | 2017-07-09 10:13 | PDIAF ---
- Diagnosis Diagnosis: cirrhosis Code Status: Full Code - Medication Management Discharge Medications: Medications to Continue on Transfer Escitalopram Oxalate [Lexapro] 5 mg PO DAILY 07/05/17 [Last Taken 07/04/17] Omeprazole [Prilosec 20 mg] 20 mg PO DAILY 07/05/17 [Last Taken Unknown] Prochlorperazine Maleate [Compazine 10mg (*)] 10 mg PO Q6HRS PRN 07/05/17 [Last Taken 07/04/17 14:00] Regorafenib [Stivarga] 80 mg PO DAILY 07/05/17 [Last Taken 07/04/17] oxyCODONE HCL [Oxycontin] 10 mg PO DAILY 07/05/17 [Last Taken 07/04/17] oxyCODONE HCL [Oxycontin] 20 mg PO HS 07/05/17 [Last Taken 07/04/17] oxyCODONE IR [Oxycodone Ir (*)] 10 - 20 mg PO Q3-4PRN PRN 07/05/17 [Last Taken 07/05/17 03:00 10mg] Furosemide [Lasix 40 MG (*)] 40 mg PO BID@0900,1500 #60 tab 07/09/17 [Last Taken Unknown] Nadolol [Nadolol 20 mg (*)] 10 mg PO DAILY #30 tab 07/09/17 [Last Taken Unknown] Spironolactone [Aldactone] 100 mg PO DAILY #60 tab 07/09/17 [Last Taken Unknown] Discharge Medications: Refer to the Discharge Home Medication list for PRN reason. - Orders Services needed: Home Care, Registered Nurse Home Care Face to Face: I certify that this patient was under my care and that I had the required [id number] encounter meeting the encounter requirements on the discharge day. My findings support the fact that the patient is homebound as defined in Home Care Face to Face Continued: CMS Chapter 7 Medicare Benefits Manual 30.1.1 , The condition of the patient is such that there exists a normal inability to leave home and consequently, leaving home would require a considerable and taxing effort. Isolation Type: Chemotherapy Isolation Diet Recommendation: sodium restricted Diet Texture: Regular Texture Diet - Labs/Radiology BMP Date: 07/12/17 (Call results to ) - Follow Up Care Current Providers and Referrals: Xiao Sherman MD [Primary Care Provider] - As per Instructions Almas Li MD [Medical Doctor] -
--- NOTE | 2017-07-09 18:53 | GDS ---
[f rep st] DISCHARGE SUMMARY DISCHARGE DIAGNOSES: Include: 1. Acute upper gastrointestinal bleed secondary to esophageal varices. 2. Acute blood loss anemia. 3. Cirrhosis with portal hypertension and chronic ascites. 4. Chronic pain. HISTORY OF PRESENT ILLNESS: This is a 57-year-old male who presents on 07/05/2017, with complaints o f hematemesis. For details of patient's initial presentation, please see the history and physical da monica 07/05/2017. CONSULTATIVE SERVICES: Gastroenterology. PROCEDURES: On 07/05/2017, patient underwent EGD, which showed esophageal varices, not actively blee ding. HOSPITAL COURSE BY ISSUE: 1. Acute upper GI bleed. Patient was admitted, underwent emergent scoping by Gastroenterology, keerthir e esophageal varices were identified. Patient had Nadolol started, is being discharged on 10 mg, can be up titrated in the outpatient setting. He is to have an EGD in 4-5 weeks. The patient was admit monica to the medical floor, kept on octreotide for 72 hours, titrated on proton pump inhibitor, and mon itored closely. The patient did not have recurrent GI losses after his instrumentation. He is being discharged home on omeprazole and close outpatient monitoring for his cirrhosis. 2. Acute blood loss anemia. The patient received 2 units of packed red blood cells on 07/09/2017. The patient's hemoglobin was 8, hematocrit 25. 3. Chronic ascites. Patient had his medication regimen, including spironolactone and Lasix, uptitra monica. He will follow in the outpatient setting with Dr. Li. 4. Chronic pain. Patient was continued on his home regimen without alteration. DISCHARGE MEDICATIONS: Please reference the med rec printed on 07/09/2017. FOLLOWUP APPOINTMENTS: Include with Dr. Li, with Gastroenterology, as well as with his outpatien t provider in the next 1-2 weeks. The patient is being discharged with home health nursing to allow vital sign monitoring and lab checks at the end of the week to be called to Dr. Li. PENDING STUDIES: At the time of this dictation are none. BILLING: I spent greater than 30 minutes in the planning and coordination of this discharge. /[id number]
== END 2017-07-09 11:49 | disposition home health service (06) | DRG 369 ==
LOC: INTOOBSV 09:35 → F2N 12:00 → OBSVTOIN 07-06 14:00 → F1N 07-07 19:38
PROVIDERS: ADMIT Family Medicine; ATTEND Family Medicine
PROC: 30233N1 Transfusion of Nonautologous Red Blood Cells into Peripheral Vein, Percutaneous Approach (ICD-10-PCS; 2017-07-05)
PROC: 06L38CZ Occlusion of Esophageal Vein with Extraluminal Device, Via Natural or Artificial Opening Endoscopic (ICD-10-PCS; principal; 2017-07-05 12:30)
DX: I85.01 Esophageal varices with bleeding (principal); D62 Acute posthemorrhagic anemia; R18.8 Other ascites; K76.6 Portal hypertension; G89.4 Chronic pain syndrome; K74.69 Other cirrhosis of liver
CPT/HCPCS: 96365; 96366; G0378; J0330; J1100; J1170; J1642; J2353; J2354; J2370; J2405; J2704; J3010; J3430; P9016

== ENCOUNTER → 2017-07-16 | Outpatient (CLI) | payer OTHER ==
[~2017-07-16] MED LIST changes: +ALBUMIN 25% 100 ML SOLN IV ONE
== END ==
LOC: FIMAGING 13:46
PROVIDERS: ATTEND Internal Medicine Hematology & Oncology
PROC: 0W9F3ZZ Drainage of Abdominal Wall, Percutaneous Approach (ICD-10-PCS; principal; 2017-07-16)
DX: R18.8 Other ascites (principal); C20 Malignant neoplasm of rectum
CPT/HCPCS: P9047

== ENCOUNTER → 2017-07-30 | Outpatient (CLI) | payer OTHER ==
[~2017-07-30] MED LIST changes: -LIDOCAINE 1% 300 MG/30 ML SDV ONE
== END ==
LOC: FIMAGING 14:07
PROVIDERS: ATTEND Internal Medicine Hematology & Oncology
PROC: 0W9F3ZZ Drainage of Abdominal Wall, Percutaneous Approach (ICD-10-PCS; principal; 2017-07-30)
DX: R18.8 Other ascites (principal)
CPT/HCPCS: J1642; P9047

== ENCOUNTER → 2017-08-08 | Outpatient (CLI) | payer OTHER ==
[~2017-08-08] MED LIST changes: +LIDOCAINE 1% 300 MG/30 ML SDV ONE
== END ==
LOC: FIMAGING 13:33
PROVIDERS: ATTEND Internal Medicine Hematology & Oncology
PROC: 0W9F30Z Drainage of Abdominal Wall with Drainage Device, Percutaneous Approach (ICD-10-PCS; principal; 2017-08-08)
DX: R18.8 Other ascites (principal)
CPT/HCPCS: P9047